=== PATIENT | male | born 1955 | race Caucasian/White ===

== ENCOUNTER 2017-07-01 18:00 | Outpatient (RCR) | payer BC ==
[~2017-07-01] VITALS: Ht 182.9 cm; Wt 167.8 kg
== END 2017-09-29 | disposition home or self-care (01) ==
LOC: DSME 18:00
PROVIDERS: ATTEND Family Medicine
DX: E11.65 Type 2 diabetes mellitus with hyperglycemia (principal)

== ENCOUNTER 2020-04-21 10:38 | Emergency (ER) | payer BC ==
[~2020-04-21] VITALS: Ht 180.3 cm; Wt 168.1 kg
--- NOTE | 2020-04-21 11:02 | ED Chest Pain ---
General Stated Complaint: L ARM NUMBNESS,CP Source: patient Exam Limitations: no limitations History of Present Illness Date Seen by Provider: Apr 21, 2020 Time Seen by Provider: 10:46 Initial Comments Patient presents to the ER by private conveyance with chief complaint the past couple weeks has had progressively worsening left shoulder neck pain radiating down around his clavicle on the left side. 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 He is right-handed. No history of heart disease smoking or tobacco use, hyperlipidemia. He does take enalapril for high blood pressure, has diabetes with A1c less than 6.0 on Trulicity, obesity, sister with early onset coronary disease in her early 50s. He denies he is having pain anywhere in his chest. His pain is reproducible to direct palpation and movement. He has full range of motion of both arms. He has no history of injury or surgeries to his shoulder/chest. This pain is persistent for the past 2 days and is now accompanied with some paresthesias numbness tingling running down the back of his left arm to his mid ulna. He follows with [facility]. Allergies and Home Medications Allergies Coded Allergies: No Known Drug Allergies (Unverified , 04/21/20) Patient Home Medication List Home Medication List Reviewed: Yes Review of Systems Review of Systems Constitutional: No chills, No diaphoresis EENTM: No Blurred Vision, No Double Vision Respiratory: Denies Cough, Denies Shortness of Air Cardiovascular: See HPI, Chest Pain; Denies Edema, Denies Irregular Heart Rate Gastrointestinal: Denies Abdomen Distended, Denies Abdominal Pain Genitourinary: Denies Burning, Denies Discharge Musculoskeletal: see HPI; No back pain; joint pain Skin: No change in color, No change in hair/nails Psychiatric/Neurological: Denies Anxiety, Denies Depressed All Other Systems Reviewed Negative Unless Noted: Yes Past Tuhthdy-Qnzald-Fxkstd Hx Patient Social History Alcohol Use: Denies Use Smoking Status: Never a Smoker Physical Exam Vital Signs Vital Signs - First Documented 04/21/20 10:38 Temp 36.5 Pulse 69 Resp 18 B/P (MAP) 157/126 (136) Pulse Ox 96 O2 Delivery Room Air Capillary Refill : Height, Weight, BMI Height: 6'0.00" Weight: 370lbs. oz. kg; 50.18 BMI Method: General Appearance: No Apparent Distress, Obese HEENT: PERRL/EOMI, Pharynx Normal, Moist Mucous Membranes Neck: Full Range of Motion, Normal Inspection Respiratory: Lungs Clear, Normal Breath Sounds, No Accessory Muscle Use, No Respiratory Distress Cardiovascular: Regular Rate, Rhythm, No Edema, Normal Peripheral Pulses Gastrointestinal: Normal Bowel Sounds, Non Tender Extremity: Other (Tenderness reproducible on external rotation of the left arm as well as palpation to the trapezius and supraspinatus muscles. ) Neurologic/Psychiatric: Alert, Oriented x3 Skin: Normal Color, Warm/Dry Progress/Results/Core Measures Results/Orders Lab Results Laboratory Tests Test 04/21/20 10:57 Range/Units White Blood Count 11.6 H 4.3-11.0 10^3/uL Red Blood Count 5.34 4.30-5.52 10^6/uL Hemoglobin 15.1 13.3-17.7 g/dL Hematocrit 47 40-54 % Mean Corpuscular Volume 89 80-99 fL Mean Corpuscular Hemoglobin 28 25-34 pg Mean Corpuscular Hemoglobin Concent 32 32-36 g/dL Red Cell Distribution Width 13.0 10.0-14.5 % Platelet Count 222 130-400 10^3/uL Mean Platelet Volume 8.6 L 9.0-12.2 fL Immature Granulocyte % (Auto) 1 % Neutrophils (%) (Auto) 67 42-75 % Lymphocytes (%) (Auto) 23 12-44 % Monocytes (%) (Auto) 7 0-12 % Eosinophils (%) (Auto) 2 0-10 % Basophils (%) (Auto) 0 0-10 % Neutrophils # (Auto) 7.8 1.8-7.8 10^3/uL Lymphocytes # (Auto) 2.6 1.0-4.0 10^3/uL Monocytes # (Auto) 0.8 0.0-1.0 10^3/uL Eosinophils # (Auto) 0.2 0.0-0.3 10^3/uL Basophils # (Auto) 0.1 0.0-0.1 10^3/uL Immature Granulocyte # (Auto) 0.1 0.0-0.1 10^3/uL Prothrombin Time 13.4 12.2-14.7 SEC INR Comment 1.0 0.8-1.4 Activated Partial Thromboplast Time 30 24-35 SEC Sodium Level 137 135-145 MMOL/L Potassium Level 4.5 3.6-5.0 MMOL/L Chloride Level 103 98-107 MMOL/L Carbon Dioxide Level 25 21-32 MMOL/L Anion Gap 9 5-14 MMOL/L Blood Urea Nitrogen 12 7-18 MG/DL Creatinine 0.84 0.60-1.30 MG/DL Estimat Glomerular Filtration Rate > 60 BUN/Creatinine Ratio 14 Glucose Level 154 H 70-105 MG/DL Calcium Level 9.0 8.5-10.1 MG/DL Corrected Calcium 9.2 8.5-10.1 MG/DL Magnesium Level 2.2 1.6-2.4 MG/DL Total Bilirubin 0.6 0.1-1.0 MG/DL Aspartate Amino Transf (AST/SGOT) 14 5-34 U/L Alanine Aminotransferase (ALT/SGPT) 14 0-55 U/L Alkaline Phosphatase 79 40-136 U/L Myoglobin 34.8 10.0-92.0 NG/ML Troponin I < 0.028 <0.028 NG/ML Total Protein 6.8 6.4-8.2 GM/DL Albumin 3.7 3.2-4.5 GM/DL My Orders Orders - GERTRUDIS WALL Continuous Ekg Monitoring (04/21/20 10:41) Ekg Tracing (04/21/20 10:41) Cbc With Automated Diff (04/21/20 10:55) Magnesium (04/21/20 10:55) Chest 1 View, Ap/Pa Only (04/21/20 10:55) Ekg Tracing (04/21/20 10:55) Comprehensive Metabolic Panel (04/21/20 10:55) Myoglobin Serum (04/21/20 10:55) Protime With Inr (04/21/20 10:55) Partial Thromboplastin Time (04/21/20 10:55) O2 (04/21/20 10:55) Monitor-Rhythm Ecg Trace Only (04/21/20 10:55) Lipid Panel (04/22/20 06:00) Ed Iv/Invasive Line Start (04/21/20 10:55) Troponin I (04/21/20 10:55) Shoulder, Left, 3 Views (04/21/20 10:58) Aspirin Chewable Tablet (Baby Aspirin Ch (04/21/20 11:15) Nitroglycerin 0.4 Mg Btl 25's (Nitrostat (04/21/20 11:15) Medications Given in ED Current Medications Medications Dose Ordered Sig/Kori Route Start Time Stop Time Status Last Admin Dose Admin Aspirin 324 mg ONCE ONCE PO 04/21/20 11:15 04/21/20 11:16 DC 04/21/20 11:11 324 MG Nitroglycerin 0.4 mg NEEDED PRN SL 04/21/20 11:15 04/21/20 11:32 0.4 MG Vital Signs/I&O 04/21/20 04/21/20 10:38 12:18 Temp 36.5 Pulse 69 66 Resp 18 18 B/P (MAP) 157/126 (136) 147/79 (101) Pulse Ox 96 97 O2 Delivery Room Air Room Air Progress Progress Note : Time: 12:44 Progress Note 2 doses of nitroglycerin did nothing for his pain in his shoulder. Suspect musculoskeletal rotator cuff injury. Because of his obesity, family history, hypertension and diabetes however we will get a single troponin which after 2 days of solid pain should rule out coronary involvement. We will give him a referral to cardiology as this would be prudent given his risk factors to be risk stratified. We will also refer him to Dr. VARGAS, orthopedics for his shoulder pain. Today we are going to put him on naproxen and a referral to physical therapy. If is not seeing some improvement then he can follow-up with Dr. VARGAS or the primary team at [facility]. 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 Initial ECG Impression Date: Apr 21, 2020 Initial ECG Impression Time: 10:50 Initial ECG Rate: 67 Initial ECG Rhythm: Normal Sinus Initial ECG Intervals: Normal Initial ECG Impression: Normal Initial ECG Comparisson: No Previous ECG Available Comment Normal sinus rhythm without clinically relevant ST elevation or depression. Diagnostic Imaging Diagonstic Imaging: Xray Plain Films/CT/US/NM/MRI: chest Comments NAME: AMELIA BARROSO [facility] REC#: [id number] PT STATUS: REG ER : 1955 PHYSICIAN: GERTRUDIS WALL MD ADMIT DATE: 04/21/20/ER Signed Date of Exam:04/21/20 CHEST 1 VIEW, AP/PA ONLY HISTORY: Left arm and neck pain for five days. COMPARISON: None. TECHNIQUE: Frontal view of the chest. FINDINGS: There is elevation of the right hemidiaphragm. No focal airspace opacity is seen. There is a small nodular density in the right upper lobe. The cardiac silhouette is normal in size. No pleural effusion or pneumothorax is seen. IMPRESSION: 1. No focal consolidation is seen. There is a nodular density in the right upper lobe, consider nonemergent CT follow-up. Dictated by: Dictated on workstation # [id number] Dict: 04/21/20 1135 Trans: 04/21/20 1201 [id number] [id number] Interpreted by: NAOMIE REDD MD Electronically signed by: NAOMIE REDD MD 04/21/20 1201 Reviewed: Reviewed by Me Departure Impression Primary Impression: Left shoulder pain Qualified Codes: M25.512 - Pain in left shoulder Additional Impressions: Chest pain Qualified Codes: R07.89 - Other chest pain Compression neuropathy Disposition: 01 HOME, SELF-CARE Condition: Improved Departure-Patient Inst. Decision time for Depature: 12:56 Referrals: [facility] ([place]) Primary Care Physician JAGJIT SANCHEZ (Family) Primary Care Physician PENNY ROSADO MD,IVETH Castro MD Patient Instructions: Shoulder Pain (DC), Chest Pain (DC) Add. Discharge Instructions: I suspect your pain is caused by injury to the rotator cuff muscles of your left shoulder. Because of your risk factors however it is important that you follow-up with Dr. Rosado and request a risk stratification examination in the clinic within the next week. I want you to start naproxen 1 tablet 500 mg twice a day 1 to 2 weeks. If you not seeing improvement in the first week then follow-up with physical therapy by calling [phone]. If you are still not seeing improvement then you can follow-up with Dr. VARGAS and request further examination of your shoulder. If it anytime you are having worsening chest pain or acid reflux then stop taking the naproxen and return to the ER. Tylenol 1000 mg every 8 hours as necessary for pain. Topical creams such as icy hot or Biofreeze as necessary for pain control applied directly to your shoulder. Scripts Naproxen (Naprosyn) 500 Mg Tablet 500 MG PO BID for 14 Days, #30 TAB 0 Refills Prov: GERTRUDIS WALL 04/21/20 Work/School Note: Work Release Form Date Seen in the Emergency Department: Apr 21, 2020 Return to Work: Apr 22, 2020 Restrictions: Need Release from Doctor Other Restrictions Listed Below: Do not lift more than 5 pounds with the left shoulder until 05/05/2020. Copy Copies To 1: PENNY ROSADO MD; IVETH VARGAS MD, TITUS J Apr 21, 2020 11:02
[2020-04-21 11:04] LABS: BASOPHILS # (AUTO) 0.1 10^3/uL (0.0-0.1); BASOPHILS % (AUTO) 0 % (0-10); EOSINOPHILS # (AUTO) 0.2 10^3/uL (0.0-0.3); EOSINOPHILS % (AUTO) 2 % (0-10); HEMATOCRIT 47 % (40-54); HEMOGLOBIN 15.1 g/dL (13.3-17.7); LYMPHOCYTES # (AUTO) 2.6 10^3/uL (1.0-4.0); LYMPHOCYTES % (AUTO) 23 % (12-44); MEAN CORPUSCULAR HEMOGLOBIN 28 pg (25-34); MEAN CORPUSCULAR HGB CONC 32 g/dL (32-36); MEAN CORPUSCULAR VOLUME 89 fL (80-99); MEAN PLATELET VOLUME 8.6 fL (9.0-12.2); MONOCYTES # (AUTO) 0.8 10^3/uL (0.0-1.0); MONOCYTES % (AUTO) 7 % (0-12); NEUTROPHILS # (AUTO) 7.8 10^3/uL (1.8-7.8); NEUTROPHILS % (AUTO) 67 % (42-75); PLATELET COUNT 222 10^3/uL (130-400); WHITE BLOOD COUNT 11.6 10^3/uL (4.3-11.0)
[2020-04-21] MEDS: NITROGLYCERIN 0.4 MG SL TABS BTL 25'S SL PRN ×2 (11:12→11:32)
[2020-04-21 11:14] LABS: ALBUMIN 3.7 GM/DL (3.2-4.5); PROTHROMBIN TIME PATIENT 13.4 SEC (12.2-14.7)
[2020-04-21 11:15] LABS: CHLORIDE 103 MMOL/L (98-107); POTASSIUM 4.5 MMOL/L (3.6-5.0); SODIUM 137 MMOL/L (135-145)
[2020-04-21] MEDS ORDERED: ASPIRIN 81 MG CHEW (CHILDREN'S ASA) PO ONE (11:15)
[2020-04-21 11:17] LABS: GLUCOSE 154 MG/DL (70-105); TOTAL PROTEIN 6.8 GM/DL (6.4-8.2)
[2020-04-21 11:18] LABS: CARBON DIOXIDE 25 MMOL/L (21-32)
[2020-04-21 11:19] LABS: BILIRUBIN,TOTAL 0.6 MG/DL (0.1-1.0)
[2020-04-21 11:20] LABS: ALKALINE PHOSPHATASE 79 U/L (40-136); CREATININE SERUM 0.84 MG/DL (0.60-1.30); GFR ESTIMATED > 60
[2020-04-21 11:22] LABS: BUN/CREATININE RATIO 14
[2020-04-21 11:23] LABS: ALANINE AMINOTRANSFERASE 14 U/L (0-55)
[2020-04-21 11:24] LABS: MAGNESIUM 2.2 MG/DL (1.6-2.4)
--- NOTE | 2020-04-21 11:38 | Diagnostic Imaging Report ---
HISTORY: Left arm and neck pain for five days. COMPARISON: None. TECHNIQUE: Frontal view of the chest. FINDINGS: There is elevation of the right hemidiaphragm. No focal airspace opacity is seen. There is a small nodular density in the right upper lobe. The cardiac silhouette is normal in size. No pleural effusion or pneumothorax is seen. IMPRESSION: 1. No focal consolidation is seen. There is a nodular density in the right upper lobe, consider nonemergent CT follow-up. Dictated by: Dictated on workstation # [id number]
--- NOTE | 2020-04-21 11:41 | Diagnostic Imaging Report ---
HISTORY: Left arm and neck pain for five days. TECHNIQUE: Three views of the left shoulder. COMPARISON: None. FINDINGS: No acute fracture or dislocation is seen in the left shoulder. Alignment appears normal. There is mild degenerative change in the acromioclavicular joint. IMPRESSION: 1. Mild degenerative change in the left acromioclavicular joint with no acute osseous abnormalities seen in the left shoulder. Dictated by: Dictated on workstation # [id number]
[2020-04-21] MEDS ORDERED: NAPR-1071 PO (13:04)
[2020-04-21 13:20] VITALS: BP 141/79
== END 2020-04-21 13:21 | disposition home or self-care (01) ==
LOC: EDUNIT# 10:38 → ER 10:40
DX: M25.512 Pain in left shoulder (principal); R07.9 Chest pain, unspecified; G62.9 Polyneuropathy, unspecified; E66.9 Obesity, unspecified; I10 Essential (primary) hypertension; Z68.43 Body mass index [BMI] 50.0-59.9, adult
CPT/HCPCS: 36415; 71045; 73030; 80053; 83735; 83874; 84484; 85025; 85610; 85730; 93005; 93041

== ENCOUNTER 2020-10-12 06:21 | Outpatient (CLI) | payer BC ==
[~2020-10-12] VITALS: Ht 182.9 cm; Wt 163.6 kg
[~2020-10-12 06:21] MED LIST: NAPR-1071 PO
[2020-10-12] MEDS ORDERED: ENAL20TA16 PO (11:54)
[2020-10-12] MEDS ORDERED: DULA0.75 SQ (11:54)
[2020-10-12] MEDS ORDERED: ASPI-999 PO (11:56)
== END 2020-10-12 12:12 | disposition home or self-care (01) ==
LOC: PREOP 06:21
PROVIDERS: ATTEND Orthopaedic Surgery
DX: Z01.818 Encounter for other preprocedural examination (principal)

== ENCOUNTER 2020-10-19 05:52 | Day surgery (SDC) | payer BC ==
--- NOTE | 2020-10-11 19:50 | HISTORY AND PHYSICAL ---
DATE OF SERVICE: ADMISSION HISTORY AND PHYSICAL DATE OF ADMISSION: 10/19/2020. This will be for outpatient surgery on 10/19/2020, that will be his date of admission, date of service and date of surgery for left shoulder arthroscopy and biceps tenotomy. HISTORY OF PRESENT ILLNESS: The patient is a 65-year-old right hand dominant gentleman with progressively worsening left shoulder pain. He reported a burning pain anteriorly and laterally. Ultimately, an MRI was obtained, which revealed a longitudinal split of his biceps and a SLAP tear. Due to functional impairment and failure to improve with conservative measures, the patient elected to proceed with surgical intervention. REVIEW OF SYSTEMS: No chest pain, no shortness of breath, and no dysuria. PAST MEDICAL HISTORY: Diabetes and hypertension. PAST SURGICAL HISTORY: Left carpal tunnel. FAMILY HISTORY: Significant for coronary artery disease and diabetes. PRIMARY CARE PROVIDER: [facility]. MEDICATIONS: Trulicity, enalapril, and Naprosyn. ALLERGIES: No known drug allergies. SOCIAL HISTORY: The patient denies alcohol and tobacco use. PHYSICAL EXAMINATION: GENERAL: The patient is well-developed, well-nourished, in no acute distress. HEENT: Normocephalic and atraumatic. Pupils are equal, round and reactive to light. Oropharynx is clear. NECK: Supple and no lymphadenopathy. LUNGS: Clear to auscultation bilaterally. HEART: Regular rate and rhythm. ABDOMEN: Soft, nontender, and nondistended. EXTREMITIES: Left shoulder demonstrates positive Neer's and positive Hawkin sign, positive Cash's maneuver pain with apprehension relieved with relocation. He has symmetric forward elevation, external and internal rotation, no gross weakness to abduction or external rotation, but mild pain elicited. ASSESSMENT: Left shoulder biceps longitudinal tear with SLAP tear. PLAN: Left shoulder arthroscopy, biceps tenotomy, and debridement. The risks, benefits, options, ramifications and recovery have been discussed at length with the patient. He understands and wishes to proceed. Job ID: [id number] DocumentID: [id number] Dictated Date: 10/10/2020 13:36:48 Patient Transition Specialist Date: 10/10/2020 13:50:27 Dictated By: IVETH VARGAS MD
[~2020-10-19] VITALS: Ht 182 cm; Wt 163.6 kg
[2020-10-19] VITALS (10 sets, daily range): BP systolic 116–133; BP diastolic 61–87
[~2020-10-19 05:52] MED LIST changes: +ASPI-999 PO; +DULA0.75 SQ; +ENAL20TA16 PO
[2020-10-19] MEDS ORDERED: LACTATED RINGERS 1,000 ML IV PRN (06:15)
[2020-10-19] MEDS ORDERED: ceFAZolin INJECTION 1,000 MG in WATER (STERILE) FOR INJECTION 10 ML IV ONE (06:15)
[2020-10-19] MEDS ORDERED: CATHETER FLUSH 10 ML SYR IV PRN (06:45)
[2020-10-19] MEDS ORDERED: BUPIVACAINE 0.25% 30 ML (SENSORCAINE) VIAL ONE (07:16)
[2020-10-19] MEDS ORDERED: morphine PF (DURAMORPH) 10 MG/10 ML AMP ONE (07:16)
[2020-10-19] MEDS ORDERED: proPOfol 200 MG/20 ML (DIPRIVAN) VIAL IV ONE ×2 (07:30→08:14)
[2020-10-19] MEDS ORDERED: ONDANSETRON 4 MG/2 ML (SDV) Z0FRAN ONE (07:30)
[2020-10-19] MEDS ORDERED: LIDOCAINE PF 2% 5 ML (XYLOCAINE) VIAL ONE (07:30)
[2020-10-19] MEDS ORDERED: MIDAZOLAM 2 MG/2 ML (VERSED) VIAL ONE (07:30)
[2020-10-19] MEDS ORDERED: fentaNYL INJ 100 MCG/2 ML AMP ONE (07:30)
--- NOTE | 2020-10-19 07:32 | Progress Note-Pre Operative ---
Pre-Operative Progress Note H&P Reviewed The H&P was reviewed, patient examined and no changes noted. Date Seen by Provider: Oct 19, 2020 Time Seen by Provider: 07:20 Date H&P Reviewed: Oct 19, 2020 Time H&P Reviewed: 07:11 Pre-Operative Diagnosis: left shoulder SLAP tear IVETH VARGAS MD Oct 19, 2020 07:32
--- NOTE | 2020-10-19 07:33 | Progress Note-Post Operative ---
Post-Operative Progess Note Surgeon (s)/Tire Care Manager (s) Surgeon IVETH VARGAS MD Tire Care Manager: none Pre-Operative Diagnosis left shoulder SLAP tear Post-Operative Diagnosis left shoulder SLAP and labral tears Procedure & Operative Findings Date of Procedure 10/19/20 Procedure Performed/Findings left shoulder arthroscopic biceps tenotomy and labral debridement Anesthesia Type GETA Estimated Blood Loss Estimated blood loss (mL): minimal Specimens/Packing Specimens Removed none Packing: none IVETH VARGAS MD Oct 19, 2020 07:33
[2020-10-19] MEDS ORDERED: SEVOFLURANE (ULTANE) 15 ML INHAL SOLN ONE (08:27)
--- NOTE | 2020-10-19 10:59 | Anesthesia-General Post-Op ---
General Patient Condition Mental Status/LOC: Same as Preop Cardiovascular: Satisfactory Nausea/Vomiting: Absent Respiratory: Satisfactory Pain: Controlled Complications: Absent Post Op Complications Complications None Follow Up Care/Instructions Patient Instructions None needed. Anesthesia/Patient Condition Patient Condition Patient is doing well, no complaints, stable vital signs, no apparent adverse anesthesia problems. No complications reported per nursing. CHELE INFANTE CRNA Oct 19, 2020 10:59
--- NOTE | 2020-10-19 13:02 | OPERATIVE REPORT ---
DATE OF SERVICE: PREOPERATIVE DIAGNOSES: 1. Left shoulder SLAP tear. 2. Left shoulder labral tear. POSTOPERATIVE DIAGNOSES: 1. Left shoulder SLAP tear. 2. Left shoulder labral tear. PROCEDURES: 1. Left shoulder arthroscopic biceps tenotomy. 2. Left shoulder arthroscopic labral debridement. SURGEON: Jhonatan Vargas MD CHEMICAL STRENGTH TESTER: None. ANESTHESIA: General endotracheal by Priya Ayon CRNA. ESTIMATED BLOOD LOSS: Minimal. DRAINS: None. COMPLICATIONS: None. POSTOPERATIVE PLAN: Sling wear and passive range of motion for 4 weeks, the patient was transferred to the recovery room awake and in stable condition. STATEMENT OF MEDICAL NECESSITY: The patient is a 65-year-old gentleman with complaints of left shoulder pain, popping and catching, which was worse with overhead activities. He underwent an MRI, which revealed evidence of a SLAP tear, his rotator cuff was intact. The patient reported impairment with work activities and because of this, I elected to proceed with surgical intervention. Examination under anesthesia revealed forward elevation of 160 degrees, external rotation of 80 degrees, internal rotation of 70 degrees. Arthroscopic findings, rotator cuff was intact throughout. There was a type 2 SLAP tear. In addition, there was an anterior labral flap from the 10 to 12 o'clock positions. The remainder of the labrum was intact. There was no significant glenoid or humeral head articular wear. DESCRIPTION OF PROCEDURE: After risks and benefits of the procedure were discussed and questions were answered, informed consent was signed and placed on chart, the operative site was confirmed in the preoperative holding area initialed by the surgeon. The patient was then transferred to the operating room and after adequate levels of general endotracheal anesthetic were obtained, a timeout was called, confirming the operative site. Examination under anesthesia was performed with above findings noted. Left shoulder and upper extremity were prepped and draped in the usual sterile fashion. Shoulder joint was injected with 20 mL of fluid and standard posterior portal was placed. Under direct visualization, an anterior portal was created in the interval between biceps, subscapularis and glenoid. The biceps anchor was released and the stump was debrided with a shaver. Shoulder was copiously irrigated. Port sites were closed with 4-0 nylon in simple interrupted fashion. Shoulder was injected with Duramorph. Port sites were infiltrated with plain Marcaine. A soft dressing was applied and a sling, and the patient was transferred to the recovery room awake and in stable condition. Job ID: [id number] DocumentID: [id number] Dictated Date: 10/19/2020 08:28:59 Talent Acquisition Coordinator Date: 10/19/2020 13:00:59 Dictated By: JHONATAN VARGAS MD
== END 2020-10-19 10:45 | disposition home or self-care (01) ==
LOC: SDC 05:52
PROVIDERS: ATTEND Orthopaedic Surgery
DX: S43.432A Superior glenoid labrum lesion of left shoulder, initial encounter (principal); S43.402A Unspecified sprain of left shoulder joint, initial encounter; E11.9 Type 2 diabetes mellitus without complications; E66.01 Morbid (severe) obesity due to excess calories; I10 Essential (primary) hypertension; Z83.3 Family history of diabetes mellitus; Z79.84 Long term (current) use of oral hypoglycemic drugs; Z68.42 Body mass index [BMI] 45.0-49.9, adult
CPT/HCPCS: 82947; 87081

== ENCOUNTER 2021-01-16 05:38 | Outpatient (CLI) | payer BC ==
[~2021-01-16] VITALS: Ht 182.9 cm; Wt 163.4 kg
== END 2021-01-16 10:10 | disposition home or self-care (01) ==
LOC: PREOP 05:38
PROVIDERS: ATTEND Orthopaedic Surgery
DX: Z01.818 Encounter for other preprocedural examination (principal)

== ENCOUNTER 2021-01-18 08:01 | Observation (INO) | payer BC ==
--- NOTE | 2021-01-17 07:05 | HISTORY AND PHYSICAL ---
DATE OF SERVICE: ADMISSION HISTORY AND PHYSICAL This will be for outpatient surgery for left rotator cuff repair on 01/18/2021. HISTORY OF PRESENT ILLNESS: The patient is a 75-year-old right hand dominant gentleman who injured his left shoulder while he was pulling himself and pushing out of bed. He felt and heard a pop in his shoulder. He had previously undergone a biceps tenotomy and been doing well. An MRI was ultimately obtained due to weakness and failure to improve with the physical therapy. The MRI revealed a full-thickness supraspinatus tear with a superior involvement of the subscapularis. Due to functional impairment and failure to improve with conservative measures, the patient elected to proceed with surgical intervention. REVIEW OF SYSTEMS: No chest pain, no shortness of breath, no dysuria. PAST MEDICAL HISTORY: Type 2 diabetes mellitus, hypertension. PAST SURGICAL HISTORY: Left carpal tunnel, left shoulder arthroscopy. FAMILY HISTORY: Significant for coronary artery disease, diabetes. PRIMARY CARE PROVIDER: [facility]. MEDICATIONS: 1. Trulicity. 2. Enalapril. SOCIAL HISTORY: The patient denies tobacco and alcohol use. PHYSICAL EXAMINATION: GENERAL: The patient is well-developed, well-nourished, in no acute distress. HEENT: Normocephalic, atraumatic. Pupils are equal, round, reactive to light. Oropharynx is clear. NECK: Supple, no lymphadenopathy. LUNGS: Clear to auscultation bilaterally. HEART: Regular rate and rhythm. ABDOMEN: Soft, nontender, nondistended. EXTREMITIES: The left shoulder demonstrates active forward elevation 120 degrees, painful beyond 90. Passive forward elevation is 170 degrees, external rotation actively 70 degrees and internal rotation to his lower lumbar spine. He has weakness with abduction and external rotation. IMPRESSION: Left rotator cuff tear. PLAN: Left shoulder arthroscopy, acromioplasty with open rotator cuff repair. The risks, benefits, options, ramifications and recovery have been discussed at length with the patient. He understands and wishes to proceed. This will be for outpatient surgery on 01/18/2021. Job ID: [id number] DocumentID: [id number] Dictated Date: 01/06/2021 09:44:20 Nursing Service Administrator Date: 01/06/2021 10:17:36 Dictated By: IVETH VARGAS MD
[2021-01-18] VITALS (15 sets, daily range): BP systolic 103–149; BP diastolic 58–76
[~2021-01-18] VITALS: Ht 182.9 cm; Wt 163.4 kg
[2021-01-18] MEDS ORDERED: morphine PF (DURAMORPH) 10 MG/10 ML AMP ONE (08:11)
[2021-01-18] MEDS ORDERED: BUPIVACAINE 0.25% 30 ML (SENSORCAINE) VIAL ONE (08:12)
[2021-01-18] MEDS ORDERED: ceFAZolin INJECTION 1,000 MG in WATER (STERILE) FOR INJECTION 10 ML IV ONE (08:15)
[2021-01-18] MEDS ORDERED: LACTATED RINGERS 1,000 ML IV PRN (08:15)
[2021-01-18] MEDS ORDERED: ONDANSETRON 4 MG/2 ML (SDV) Z0FRAN IV ONE (08:30)
[2021-01-18] MEDS ORDERED: FAMOTIDINE 20MG/2ML IV (PEPCID) IV ONE (08:30)
[2021-01-18] MEDS ORDERED: SEVOFLURANE (ULTANE) 15 ML INHAL SOLN ONE (08:37)
[2021-01-18] MEDS ORDERED: proPOfol 200 MG/20 ML (DIPRIVAN) VIAL IV ONE (08:37)
[2021-01-18] MEDS ORDERED: LIDOCAINE PF 2% 5 ML (XYLOCAINE) VIAL ONE (08:37)
[2021-01-18] MEDS ORDERED: MIDAZOLAM 2 MG/2 ML (VERSED) VIAL ONE (08:37)
[2021-01-18] MEDS ORDERED: ONDANSETRON 4 MG/2 ML (SDV) Z0FRAN ONE ×2 (08:37→08:45)
[2021-01-18] MEDS ORDERED: fentaNYL INJ 100 MCG/2 ML AMP ONE (08:37)
[2021-01-18] MEDS ORDERED: ceFAZolin INJECTION 0 MG ONE (08:44)
[2021-01-18] MEDS ORDERED: FAMOTIDINE 20MG/2ML IV (PEPCID) ONE (08:46)
[2021-01-18] MEDS ORDERED: ceFAZolin INJECTION 1,000 MG ONE (09:02)
[2021-01-18] MEDS ORDERED: WATER (STERILE) FOR INJECTION 10 ML ONE (09:03)
--- NOTE | 2021-01-18 09:09 | Progress Note-Pre Operative ---
Pre-Operative Progress Note H&P Reviewed The H&P was reviewed, patient examined and no changes noted. Date Seen by Provider: Jan 18, 2021 Time Seen by Provider: 09:00 Date H&P Reviewed: Jan 18, 2021 Time H&P Reviewed: 07:11 Pre-Operative Diagnosis: left acute rotator cuff repair IVETH VARGAS MD Jan 18, 2021 09:09
--- NOTE | 2021-01-18 09:12 | Progress Note-Post Operative ---
Post-Operative Progess Note Surgeon (s)/Blanching Machine Operator (s) Surgeon IVETH VARGAS MD Blanching Machine Operator: Ravi Stephens Pre-Operative Diagnosis left acute rotator cuff tear Post-Operative Diagnosis left acute rotator cuff tear Procedure & Operative Findings Date of Procedure 01/18/21 Procedure Performed/Findings left shoulder arthroscopic acromioplasty and open rotator cuff repair Anesthesia Type GETA Estimated Blood Loss Estimated blood loss (mL): minimal Specimens/Packing Specimens Removed none Packing: none IVETH VARGAS MD Jan 18, 2021 09:12
[2021-01-18] MEDS ORDERED: ROCURONIUM 10 MG/ML 5 ML SYRINGE IV ONE (09:21)
[2021-01-18] MEDS ORDERED: GLYCOPYRROLATE 0.2 MG/ML (ROBINUL) 2 ML VIAL ONE (09:54)
[2021-01-18] MEDS ORDERED: NEOSTIGMINE 3 MG/3 ML VIAL ONE (09:54)
[2021-01-18] MEDS ORDERED: RT-ALBUTEROL SULF 2.5 MG/3 ML PRE-MIX VIAL ONE (10:23)
[2021-01-18] MEDS ORDERED: SUGAMMADEX 500 MG/5 ML VIAL (BRIDION) IV ONE (10:32)
--- NOTE | 2021-01-18 11:38 | Anesthesia-General Post-Op ---
General Patient Condition Mental Status/LOC: Same as Preop Cardiovascular: Satisfactory Nausea/Vomiting: Absent Respiratory: Satisfactory Pain: Controlled Complications: Absent Post Op Complications Complications None Follow Up Care/Instructions Patient Instructions None needed. Anesthesia/Patient Condition Patient Condition Patient is doing well, no complaints, stable vital signs, no apparent adverse anesthesia problems. No complications reported per nursing. D/C home per [facility] Criteria: Yes KAT BRUSH CRNA Jan 18, 2021 11:38
--- NOTE | 2021-01-18 14:27 | OPERATIVE REPORT ---
DATE OF SERVICE: 01/18/2021 PREOPERATIVE DIAGNOSIS: Left shoulder acute rotator cuff tear. POSTOPERATIVE DIAGNOSIS: Left shoulder acute rotator cuff tear. PROCEDURES PERFORMED: 1. Left shoulder open rotator cuff repair. 2. Left shoulder arthroscopic acromioplasty. SURGEON: Jhonatan Vargas MD. FAMILY PRESERVATION OFFICER: Ravi Davison, who assisted throughout the procedure and closed the incisions. ANESTHESIA: General endotracheal plus interscalene nerve block by Dell Barton CRNA. ESTIMATED BLOOD LOSS: Minimal. DRAINS: None. COMPLICATIONS: None. POSTOPERATIVE PLAN: Passive range of motion and sling wear for four weeks. The patient was transferred to the recovery room awake and in stable condition. STATEMENT OF MEDICAL NECESSITY: The patient is a 65-year-old gentleman, who previously underwent left shoulder biceps tenotomy and had been doing well. He went to pull himself up in bed and felt and heard a pop and since then has had weakness in the shoulder. He tried physical therapy without relief. Ultimately, an MRI was obtained, which revealed a full-thickness supraspinatus tear. Due to functional impairment and failure to improve with conservative measures, the patient elected to proceed with surgical intervention. Examination under anesthesia revealed forward elevation of 160 degrees, external rotation of 85 degrees, and internal rotation of 75 degrees. Arthroscopic findings demonstrated an absent biceps anchor. There was no significant glenoid or humeral head articular wear. There was a 1 x 1 cm full thickness tear of the supraspinatus at the midpoint of its insertion site. Subacromial space demonstrated dense bursitis with sloping of the anterolateral acromion. DESCRIPTION OF PROCEDURE: After risks and benefits of the procedure were discussed and questions were answered, an informed consent was signed and placed on the chart. The operative site was confirmed in the preoperative holding area initialed by the surgeon. The patient was then transferred to the operating room and after adequate levels of general endotracheal anesthetic were obtained, a timeout was called, confirming the operative site. The left upper extremity was prepped and draped in the usual sterile fashion. The shoulder joint was injected with 20 mL of fluid as was the subacromial space. A standard posterior portal was placed and a diagnostic arthroscopy was carried out with the above findings noted. The scope was then redirected into the subacromial space. A lateral portal was created. A bursectomy was performed and the acromion was planed to a flat type 1 acromion. The lateral portal was then extended. The deltoid was split in line with its fibers. The rotator cuff tear was mobilized and a single corkscrew type anchor was placed and a modified Ronnie-Jv repair was obtained with excellent repair obtained. The tissue was of good quality and excellent repair was obtained and the wound was copiously irrigated. The deltoid was closed in a mcgg-ec-odya fashion using #2 FiberWire in a vxhlxj-ws-ubrve interrupted fashion. The wound was further irrigated. A 3-0 Vicryl was used to reapproximate the subcutaneous tissue. Skin was closed with 4-0 nylon in a running alternating horizontal mattress fashion. The portal site was closed with 4-0 nylon in a simple interrupted fashion. Incision was infiltrated with plain Marcaine. The shoulder joint was injected with Duramorph. A soft dressing and sling were applied and the patient was transferred to the recovery room awake and in a stable condition. Job ID: [id number] DocumentID: [id number] Dictated Date: 01/18/2021 10:07:58 Cruller Maker Date: 01/18/2021 14:27:19 Dictated By: JHONATAN VARGAS MD
[2021-01-18] MEDS ORDERED: FLU QUADRIvalent (6 MON+) 60 MCG/0.5 ML (FLULAVAL) IM ONE (19:45)
[2021-01-18] MEDS: oxyCODONE/APAP 5/325MG (PERCOCET 5) TABLET PO PRN (20:58)
[2021-01-19 00:45] VITALS: BP 175/82
[2021-01-19] MEDS: oxyCODONE/APAP 5/325MG (PERCOCET 5) TABLET PO PRN ×2 (02:06→13:06)
[2021-01-19 03:47] VITALS: BP 127/65
--- NOTE | 2021-01-19 07:41 | Progress Note ---
Standard Progress Note Progress Notes/Assess & Plan Date Seen by a Provider: Jan 19, 2021 Time Seen by a Provider: 07:40 Progress/Assessment & Plan no complaints Vital Signs Date Time Temp Pulse Resp B/P (MAP) Pulse Ox O2 Delivery O2 Flow Rate FiO2 01/19/21 03:47 36.4 75 20 127/65 (85) 97 Nasal Cannula 2.00 01/19/21 00:45 36.6 84 20 175/82 (113) 96 Nasal Cannula 2.00 01/18/21 20:24 91 Nasal Cannula 2.00 01/18/21 20:02 36.6 87 18 120/63 (82) 91 Nasal Cannula 2.00 01/18/21 17:20 36.5 100 24 149/73 (98) 93 Nasal Cannula 2.00 01/18/21 16:35 Nasal Cannula 2.00 01/18/21 16:00 36.4 99 18 116/60 94 Nasal Cannula 2.00 01/18/21 14:30 92 Nasal Cannula 2.00 01/18/21 14:00 91 Nasal Cannula 2.00 01/18/21 13:45 88 Room Air 01/18/21 13:30 36.2 96 18 120/63 93 Nasal Cannula 1.00 01/18/21 12:30 36.1 96 18 114/58 95 Nasal Cannula 2.00 01/18/21 11:50 36.1 93 18 140/67 95 Nasal Cannula 3.00 01/18/21 11:20 Nasal Cannula 3 01/18/21 11:20 36.0 87 20 125/58 92 Nasal Cannula 3.00 01/18/21 11:20 36.3 16 129/60 (83) 92 Nasal Cannula 3 01/18/21 11:15 Nasal Cannula 3 01/18/21 11:10 18 129/60 (83) 92 Nasal Cannula 3 01/18/21 11:00 24 123/69 (87) 94 Nasal Cannula 3 01/18/21 11:00 Nasal Cannula 3 01/18/21 10:50 22 117/64 (81) 94 Nasal Cannula 8 01/18/21 10:45 Nasal Cannula 10 01/18/21 10:40 20 116/63 (80) 95 Nasal Cannula 10 01/18/21 10:30 OxyMask 16 01/18/21 10:30 22 133/60 (84) 94 OxyMask 16 01/18/21 10:20 26 124/64 (84) 90 OxyMask 16 01/18/21 10:16 OxyMask 16 01/18/21 10:16 36.4 29 103/72 (82) 84 OxyMask 16 01/18/21 08:20 36.4 91 20 121/76 (91) 94 Room Air I & O 01/19/21 07:00 Intake Total 1000 ml Balance 1000 ml LUE NVI dressing intact s/p LRCR DC home with O2 and FU with PCP regular diet FU two weeks IVETH VARGAS MD Jan 19, 2021 07:41
[2021-01-19 08:15] VITALS: BP 116/62
--- NOTE | 2021-01-19 08:35 | Anesthesia-General Post-Op ---
General Patient Condition Mental Status/LOC: Same as Preop Cardiovascular: Satisfactory Nausea/Vomiting: Absent Respiratory: Satisfactory Pain: Controlled Complications: Absent Post Op Complications Complications None Follow Up Care/Instructions Patient Instructions None needed. Anesthesia/Patient Condition Patient Condition Patient is doing well this morning, no complaints, sitting up in chair with stable vital signs. Yesterday afternoon his SaO2 would drop to 85%-87% while weaning off oxygen by NC. He was feeling no respiratory distress. SaO2 returned to 92%-97% on 2 L/min NC. Called Dr Galindo/Ravi Davison and arranged for a 23 observation stay with O2 via NC. Continues to do well with pain control in his shoulder. No nausea. Plan for D/C to home after a home O2 study by RT this morning. D/C home per [facility] [place] Criteria: Yes NICO ROPER DO Jan 19, 2021 08:35
[2021-01-19 11:47] VITALS: BP 113/58
--- NOTE | 2021-01-19 12:54 | Consultation ---
HPI History of Present Illness: 65 yo M that was admitted after having left shoulder rotator tear repair after his oxygen levels would not improve post op. Patient denies any pain or concerns today. Denies any shortness of breath at rest but states that he does feel fatigue when he gets up. Denies any previous lung dz or need for oxygen. He denies any CLAUS however on chart review there is some documentation of CLAUS and need for CPAP. Denies any cardiac history. Source: patient Exam Limitations: no limitations Date seen by provider: Jan 19, 2021 Time Seen by Provider: 11:15 Attending Physician Jhonatan Galindo MD PCP [facility] [place] Consult Date of Admission Jan 18, 2021 at 16:28 Home Medications Home Medications Reviewed patient Home Medication Reconciliation performed by pharmacy medication reconciliations aircraft systems technician and/or nursing. Patients Allergies have been reviewed. Allergies Coded Allergies: No Known Drug Allergies (Unverified , 10/12/20) GOK-Bxpwlv-Kqvqli Hx Patient Social History Smoking Status: Never a Smoker 2nd Hand Smoke Exposure: No Recent Hopitalizations: No Past Medical History HTN Obesity ? CLAUS Family Medical History Significant Family History: No Pertinent Family Hx Review of Systems ([facility]) Constitutional: No chills, No fever; malaise EENTM: no symptoms reported; No mouth pain, No nose congestion Respiratory: No cough; dyspnea on exertion; No orthopnea; short of breath Cardiovascular: no symptoms reported; No chest pain, No edema, No palpitations Gastrointestinal: no symptoms reported; No abdominal pain, No constipation, No diarrhea, No nausea, No vomiting Genitourinary: no symptoms reported; No dysuria, No frequency, No hematuria Musculoskeletal: other (left arm in sling) Skin: no symptoms reported Psychiatric/Neurological: No Symptoms Reported Physical Exam-([facility]) Physical Exam Vital Signs VS - Last 72 Hours, by Label 01/18/21 01/18/21 01/18/21 01/18/21 08:20 10:16 10:16 10:20 Temp 36.4 36.4 Pulse 91 Resp 20 29 26 B/P (MAP) 121/76 (91) 103/72 (82) 124/64 (84) Pulse Ox 94 84 90 O2 Delivery Room Air OxyMask OxyMask OxyMask O2 Flow Rate 16 16 16 01/18/21 01/18/21 01/18/21 01/18/21 10:30 10:30 10:40 10:45 Resp 22 20 B/P (MAP) 133/60 (84) 116/63 (80) Pulse Ox 94 95 O2 Delivery OxyMask OxyMask Nasal Cannula Nasal Cannula O2 Flow Rate 16 16 10 10 01/18/21 01/18/21 01/18/21 01/18/21 10:50 11:00 11:00 11:10 Resp 22 24 18 B/P (MAP) 117/64 (81) 123/69 (87) 129/60 (83) Pulse Ox 94 94 92 O2 Delivery Nasal Cannula Nasal Cannula Nasal Cannula Nasal Cannula O2 Flow Rate 8 3 3 3 01/18/21 01/18/21 01/18/21 01/18/21 11:15 11:20 11:20 11:20 Temp 36.3 36.0 Pulse 87 Resp 16 20 B/P (MAP) 129/60 (83) 125/58 Pulse Ox 92 92 O2 Delivery Nasal Cannula Nasal Cannula Nasal Cannula Nasal Cannula O2 Flow Rate 3 3 3.00 3 01/18/21 01/18/21 01/18/21 01/18/21 11:50 12:30 13:30 13:45 Temp 36.1 36.1 36.2 Pulse 93 96 96 Resp 18 18 18 B/P (MAP) 140/67 114/58 120/63 Pulse Ox 95 95 93 88 O2 Delivery Nasal Cannula Nasal Cannula Nasal Cannula Room Air O2 Flow Rate 3.00 2.00 1.00 01/18/21 01/18/21 01/18/21 01/18/21 14:00 14:30 16:00 16:35 Temp 36.4 Pulse 99 Resp 18 B/P (MAP) 116/60 Pulse Ox 91 92 94 O2 Delivery Nasal Cannula Nasal Cannula Nasal Cannula Nasal Cannula O2 Flow Rate 2.00 2.00 2.00 2.00 01/18/21 01/18/21 01/18/21 01/19/21 17:20 20:02 20:24 00:45 Temp 36.5 36.6 36.6 Pulse 100 87 84 Resp 24 18 20 B/P (MAP) 149/73 (98) 120/63 (82) 175/82 (113) Pulse Ox 93 91 91 96 O2 Delivery Nasal Cannula Nasal Cannula Nasal Cannula Nasal Cannula O2 Flow Rate 2.00 2.00 2.00 2.00 10/28/21 10/28/21 10/28/21 10/28/21 03:47 08:15 09:00 09:29 Temp 36.4 36.1 Pulse 75 77 Resp 20 18 B/P (MAP) 127/65 (85) 116/62 (80) Pulse Ox 97 97 O2 Delivery Nasal Cannula Room Air Nasal Cannula Nasal Cannula O2 Flow Rate 2.00 2.00 2.00 01/19/21 11:47 Temp 36.1 Pulse 82 Resp 18 B/P (MAP) 113/58 (76) Pulse Ox 95 O2 Delivery Room Air Capillary Refill : Less Than 3 Seconds General Appearance: WD/WN, no apparent distress, obese Respiratory: chest non-tender, lungs clear, normal breath sounds, no respiratory distress, no accessory muscle use; No crackles, No wheezing Cardiovascular: normal peripheral pulses, regular rate, rhythm, no edema, no murmur Gastrointestinal: normal bowel sounds, non tender, soft, no organomegaly Extremities: no pedal edema, no calf tenderness, normal capillary refill Neurologic/Psychiatric: import/export analyst II-XII nml as tested, no motor/sensory deficits, alert, normal mood/affect, oriented x 3 Skin: normal color, warm/dry Lymphatic: no adenopathy Assessment/Plan Assessment/Plan Admission Status: Observation (1) Hypoxia Status: Acute Assessment & Plan: - Post op hypoxia, likely some underlying lung dz/CLAUS, would recommend sleep study, home oxygen need only with exertion, new oxygen script sent to DME (2) LEFT SHOULDER ROTATOR CUFF TEAR HOLLIS HASSAN MD Jan 19, 2021 12:54
[2021-01-19 15:35] VITALS: BP 113/58
== END 2021-01-19 15:35 | disposition home or self-care (01) ==
LOC: SDC 08:01 → 4TH 16:28
PROVIDERS: ADMIT Orthopaedic Surgery; ATTEND Orthopaedic Surgery
DX: S46.012A Strain of muscle(s) and tendon(s) of the rotator cuff of left shoulder, initial encounter (principal); E11.9 Type 2 diabetes mellitus without complications; R09.02 Hypoxemia; I10 Essential (primary) hypertension; Z98.890 Other specified postprocedural states; Z79.84 Long term (current) use of oral hypoglycemic drugs
CPT/HCPCS: 23410; 82947; 87081; 94761; C1713; G0378

== ENCOUNTER → 2022-09-26 | Outpatient (CLI) | payer BC ==
[~2022-09-26] VITALS: Ht 182.8 cm; Wt 160.5 kg
[~2022-09-26] MED LIST changes: +ATOR10TA66 PO; +CITA20TA9 PO; +ENAL-70 PO; -ENAL20TA16 PO
== END | disposition home or self-care (01) ==
LOC: PREOP 05:38
PROVIDERS: ATTEND Surgery
DX: Z01.818 Encounter for other preprocedural examination (principal)

== ENCOUNTER 2022-10-09 08:19 | Day surgery (SDC) | payer BC ==
[~2022-10-09] VITALS: Ht 182 cm; Wt 160.5 kg
[2022-10-09] MEDS ORDERED: LACTATED RINGERS 1,000 ML IV STA (08:24)
[2022-10-09 09:00] VITALS: BP 128/89
[2022-10-09] MEDS ORDERED: PROPOFOL INJECTION 0 ML IV ONE (11:05)
[2022-10-09] MEDS ORDERED: PROPOFOL INJECTION 50 ML IV ONE (11:40)
--- NOTE | 2022-10-09 11:42 | Discharge Inst-Simple/Standard ---
Discharge Inst-Standard Patient Instructions/Follow Up Plan of Care/Instructions/FU: 2 weeks Ebenezer Activity as Tolerated: Yes Discharge Diet: Regular Diet (high fiber) ANGELIC GOTTI DO Oct 09, 2022 11:42
--- NOTE | 2022-10-09 11:43 | Progress Note-Post Operative ---
Post-Operative Progess Note Surgeon (s)/Cigar Machine Feeder (s) Surgeon ANGELIC GOTTI DO Cigar Machine Feeder: na Pre-Operative Diagnosis family hx colon cancer Post-Operative Diagnosis diverticulosis, rectal polyp Procedure & Operative Findings Date of Procedure 10/09/22 Procedure Performed/Findings colonoscopy c cold biopsy polypectomy Anesthesia Type per lawn specialist Estimated Blood Loss Estimated blood loss (mL): none Specimens/Packing Specimens Removed rectal polyp ANGELIC GOTTI DO Oct 09, 2022 11:43
[2022-10-09 11:45] VITALS: BP 103/59
[2022-10-09 11:59] VITALS: BP 103/59
--- NOTE | 2022-10-09 12:44 | Anesthesia-General Post-Op ---
MAC Patient Condition Mental Status/LOC: Same as Preop Cardiovascular: Satisfactory Nausea/Vomiting: Absent Respiratory: Satisfactory Pain: Controlled Complications: Absent Post Op Complications Complications None Follow Up Care/Instructions Patient Instructions None needed. Anesthesiology Discharge Order Discharge Order Patient is doing well, no complaints, stable vital signs, no apparent adverse anesthesia problems. No complications reported per nursing. NANETTE CONNOR CRNA Oct 09, 2022 12:44
--- NOTE | 2022-10-09 15:35 | OPERATIVE REPORT ---
DATE OF SERVICE: 10/09/2022 PREOPERATIVE DIAGNOSIS: Family history of colon cancer. POSTOPERATIVE DIAGNOSES: Diverticulosis, rectal polyp. PROCEDURE: Colonoscopy with cold biopsy polypectomy. SURGEON: Angelic Sol DO ANESTHESIA: Per FINISHED CLOTH CHECKER. ESTIMATED BLOOD LOSS: None. COMPLICATIONS: None. INDICATIONS: The patient is a 67-year-old male with family history of colon cancer, needing screening colonoscopy. He understands risks and benefits of procedure and wished to proceed. Consent was signed and in chart. DESCRIPTION OF PROCEDURE: The patient was placed in left lateral recumbent position. Timeout was performed. Digital rectal exam was performed. No palpable polyps, masses or ulcerations. Patient with firm prostate. Scope was inserted in the rectum and advanced all the way to the way to the cecum with minimal difficulty. Prep was adequate. Scope was then slowly retracted back. No polyps, masses or ulcerations in the cecum, ascending, transverse, descending and sigmoid colon. Once in the rectum, scope was retroflexed noting no other pathology. A small polyp in the rectum, which cold biopsy polypectomy was performed. Scope was then slowly retracted back until completely removed. The patient tolerated the procedure well without any complications, taken to recovery room in stable condition. RECOMMENDATIONS: The patient will need repeat colonoscopy in 5 years due to family history of colon cancer and also a polyp. The patient with a firm prostate. Would recommend urological evaluation and possible ultrasound, which would be done by Urology. Any issues be seen at that time. The patient will follow up in 2 weeks to discuss pathology results and arrange consultation with Urology. Job ID: [id number] DocumentID: [id number] Dictated Date: 10/09/2022 11:46:22 Director Of Hemophilia Date: 10/09/2022 15:33:00 Dictated By: ANGELIC SOL DO
== END 2022-10-09 12:04 | disposition home or self-care (01) ==
LOC: ENDO 08:19
PROVIDERS: ATTEND Surgery
DX: Z12.11 Encounter for screening for malignant neoplasm of colon (principal); K62.1 Rectal polyp; K57.30 Diverticulosis of large intestine without perforation or abscess without bleeding; N42.89 Other specified disorders of prostate; E11.9 Type 2 diabetes mellitus without complications; E66.01 Morbid (severe) obesity due to excess calories; G47.33 Obstructive sleep apnea (adult) (pediatric); Z79.85 Long-term (current) use of injectable non-insulin antidiabetic drugs; Z68.42 Body mass index [BMI] 45.0-49.9, adult; Z80.0 Family history of malignant neoplasm of digestive organs
CPT/HCPCS: 82947

== ENCOUNTER → 2023-01-22 | Outpatient (RCR) | payer BC ==
[~2023-01-22] MED LIST changes: +LEUPROLIDE 22.5 MG SYRINGE (ELIGARD) SQ SCH
== END ==
LOC: ONC 01-21 10:33
PROVIDERS: ATTEND Internal Medicine Hematology & Oncology
DX: Z51.11 Encounter for antineoplastic chemotherapy (principal); C61 Malignant neoplasm of prostate; E11.9 Type 2 diabetes mellitus without complications; I10 Essential (primary) hypertension; E66.01 Morbid (severe) obesity due to excess calories
CPT/HCPCS: 84153; 96402; 99204; 99205